=== PATIENT | female | born 1990 | race Caucasian/White ===

== ENCOUNTER → 2019-05-08 | Outpatient (CLI) | payer OTHER ==
[2019-05-08 14:52] LABS: BASO % 0.6 % (0.0-1.0); EOS # 0.3 10^3/uL (0.0-0.5); EOS % 4.1 % (0.0-3.0); HEMATOCRIT 34.2 % (36.0-47.0); HEMOGLOBIN 12.2 g/dl (12.0-15.5); LYMPH # 1.5 10^3/uL (1.5-5.0); LYMPH % 22.6 % (24.0-44.0); MEAN CORPUSCULAR HEMOGLOBIN 31.8 pg (27.0-33.0); MEAN CORPUSCULAR HGB CONC 35.7 g/dl (32.0-36.5); MEAN CORPUSCULAR VOLUME 89.1 fl (80.0-96.0); MONO # 0.5 10^3/uL (0.0-0.8); MONO % 7.9 % (0.0-5.0); NEUTROPHILS # 4.2 10^3/uL (1.5-8.5); NEUTROPHILS % 64.6 % (36.0-66.0); PLATELET COUNT, AUTOMATED 255 10^3/uL (150-450); RED BLOOD COUNT 3.84 10^6/uL (4.00-5.40); WHITE BLOOD COUNT 6.6 10^3/uL (4.0-10.0)
[2019-05-08 16:09] LABS: CHLAMYDIA DNA AMPLIFICATION NEGATIVE (NEGATIVE); GC DNA AMPLIFICATION NEGATIVE (NEGATIVE)
[2019-05-09 09:30] LABS: HEPATITIS C VIRUS ABY INDEX 0.1 INDEX (<0.8); HIV 1&2 SCREEN CENTAUR NEGATIVE (NEGATIVE); RUBELLA IgG QUALITATIVE IMMUNE (IMMUNE)
== END ==
LOC: M SMT 10:13
PROVIDERS: ATTEND Obstetrics & Gynecology
DX: Z36.9 Encounter for antenatal screening, unspecified (principal); Z3A.00 Weeks of gestation of pregnancy not specified

== ENCOUNTER → 2019-07-16 | Outpatient (CLI) | payer OTHER ==
--- NOTE | 2019-07-16 17:01 | REP ---
Clinical: Anatomical evaluation. Comparison: None . Findings: Examination demonstrates a single live intrauterine in breech presentation. motion is identified by technologist. Placenta is noted fundal and grade I without evidence for placenta previa or abruption. Amniotic fluid volume is normal. Cervix measures 4.1 cm in length and appears closed. Nuchal cord cannot be excluded. Gestational age by LMP 20 weeks 1 day with EDINSON 12/02/2019 . Gestational age by current measurements 19 weeks 5 days with EDINSON 12/05/2019 . FHR equals 136 beats per minute. BPD 4.5 cm 19 weeks 4 days HC 16.9 cm 19 weeks 4 days AC 15.4 cm 20 weeks 4 days FL 3.0 cm 19 weeks 3 days HL 3.0 cm 19 weeks 5 days HC/AC ratio 1.10 Estimated weight 323 grams ( 42nd percentile). Anatomical assessment demonstrates normal structures including cranium, cavum, cerebellum/posterior fossa, facial features, lungs, four-chamber heart/ventricular outflow tracts, diaphragm, stomach, cord insertion/three-vessel cord, kidneys/bladder, spine, and extremities. Small left choroid plexus cyst noted. Echogenic focus within the left cardiac ventricle consistent with prominent chordae tendineae. Impression: 1. Single live intrauterine in breech presentation demonstrating appropriate interval growth. 2. Nuchal cord cannot be excluded. 3. Cord plexus cyst and cardiac findings may warrant reevaluation and follow-up. Electronically Signed by Maldonado Phan MD 07/16/2019 04:53 P
== END ==
LOC: M RAD 15:47
PROVIDERS: ATTEND Advanced Practice Midwife
DX: Z34.82 Encounter for supervision of other normal pregnancy, second trimester (principal); Z3A.19 19 weeks gestation of pregnancy

== ENCOUNTER → 2019-07-30 | Outpatient (CLI) | payer OTHER | LOC: M PLALAB 09:59 | PROVIDERS: ATTEND Advanced Practice Midwife | DX: O28.3 Abnormal ultrasonic finding on antenatal screening of mother (principal); Z3A.00 Weeks of gestation of pregnancy not specified ==

== ENCOUNTER → 2019-08-28 | Outpatient (CLI) | payer OTHER ==
[2019-08-28 13:35] LABS: HEMATOCRIT 36.7 % (36.0-47.0); HEMOGLOBIN 12.8 g/dl (12.0-15.5); MEAN CORPUSCULAR HEMOGLOBIN 32.1 pg (27.0-33.0); MEAN CORPUSCULAR HGB CONC 34.9 g/dl (32.0-36.5); PLATELET COUNT, AUTOMATED 319 10^3/uL (150-450); RED BLOOD COUNT 3.99 10^6/uL (4.00-5.40); WHITE BLOOD COUNT 10.2 10^3/uL (4.0-10.0)
== END ==
LOC: M PLALAB 09:10
PROVIDERS: ATTEND Advanced Practice Midwife
DX: Z36.89 Encounter for other specified antenatal screening (principal); Z3A.22 22 weeks gestation of pregnancy

== ENCOUNTER → 2019-11-03 | Outpatient (REF) | payer OTHER | LOC: M SFHCWAGY 17:12 | PROVIDERS: ATTEND Obstetrics & Gynecology | DX: Z36.85 Encounter for antenatal screening for Streptococcus B (principal) ==

== ENCOUNTER 2019-11-30 16:50 | Inpatient (IN) | payer OTHER ==
[~2019-11-30] VITALS: Ht 165.1 cm; Wt 83.7 kg
[2019-11-30] MEDS ORDERED: PRENTAB9 PO (17:13)
[2019-11-30 17:29] VITALS: BP 143/89
[2019-11-30 18:20] LABS: HEMATOCRIT 35.5 % (36.0-47.0); HEMOGLOBIN 12.6 g/dl (12.0-15.5); MEAN CORPUSCULAR HGB CONC 35.5 g/dl (32.0-36.5); MEAN CORPUSCULAR VOLUME 90.1 fl (80.0-96.0); PLATELET COUNT, AUTOMATED 211 10^3/uL (150-450); RED BLOOD COUNT 3.94 10^6/uL (4.00-5.40); WHITE BLOOD COUNT 10.6 10^3/uL (4.0-10.0)
--- NOTE | 2019-11-30 18:22 | HPE ---
DATE OF ADMISSION: 11/30/2019 A 29-year-old (G) 3, para (P) 2-0-0-2 female at 39 and 5/7 weeks gestation by last menstrual period (LMP), consistent with nine-week ultrasound, estimated date of confinement (EDC) of 12/02/2019, who presents for labor induction. She has occasional contractions. She denies vaginal bleeding. COURSE: The patient's care [facility]. She has had no complications. OBSTETRICAL HISTORY: Vaginal delivery times two. PAST MEDICAL HISTORY: None. ALLERGIES: CECLOR. SOCIAL HISTORY: The patient is . She denies cigarettes, alcohol or drug use. She lives at [place]. FAMILY HISTORY: Noncontributory. PHYSICAL EXAMINATION: Blood pressure 140/89, pulse 84. She is in no apparent distress. HEAD AND NECK: Normal. LUNGS: Clear. HEART: Regular rate and rhythm. ABDOMEN: Nontender, gravid. heart tones category 1. STERILE VAGINAL EXAMINATION: 2 cm, 60%, -2, posterior, soft, vertex. EXTREMITIES: Nontender. LABORATORY DATA: She is GBS negative. Blood type is O+. ASSESSMENT: A 29-year-old (G) 3, para (P) 2 female at 39 and 5/7 weeks gestation who presents for labor induction. PLAN: The patient is admitted on 11/30/2019. The risks of induction were discussed.
[2019-11-30] MEDS: miSOPROStol 50 MCG 1/2 TAB (S0191) SL SCH ×2 (18:34→22:45)
[2019-11-30 20:36] VITALS: BP 154/90
[2019-11-30 22:06] VITALS: BP 134/74
[2019-12-01] VITALS (28 sets, daily range): BP systolic 107–148; BP diastolic 53–95
[2019-12-01] MEDS: miSOPROStol 50 MCG 1/2 TAB (S0191) SL SCH (03:52)
[2019-12-01] MEDS ORDERED: OXYTOCIN DRIP 30 UNITS in IV 1 EA IV SCH ×2 (08:45→15:00)
[2019-12-01] MEDS: LR 1,000 ML IV SCH ×2 (09:13→11:17)
[2019-12-01] MEDS ORDERED: FENTANYL 2MCG/ML ROPIVACAINE 0.2% IN 0.9% NACL 100ML IVBAG As Ordered ONE (10:24)
[2019-12-01] MEDS ORDERED: diphenhydrAMINE 50MG/ML VIAL (J1200) IV PRN (12:00)
[2019-12-01] MEDS ORDERED: ePHEDrine SULFATE 25 MG/5 ML(5MG/ML) SYRINGE IV PRN (12:00)
[2019-12-01] MEDS ORDERED: EPIDURAL COMMENT XX SCH (12:00)
[2019-12-01] MEDS ORDERED: EPIDURAL/PCA KEYS XX PRN (12:00)
[2019-12-01] MEDS ORDERED: LACTATED RINGER'S 1000 ML IV PRN (12:00)
[2019-12-01] MEDS ORDERED: NALOXONE INJ 0.4 MG/1 ML VIAL (J2310) IV PRN (12:00)
[2019-12-01] MEDS ORDERED: REFRIGERATOR IV KEYS XX PRN (12:00)
[2019-12-01] MEDS ORDERED: FENTANYL/ROPIVACAINE/NACL BAG 100 ML EPIDURAL SCH (12:00)
[2019-12-01] MEDS ORDERED: ONDANSETRON 4MG/2ML VIAL (J2405) IV PRN (12:00)
--- NOTE | 2019-12-01 13:13 | IPNPDOC ---
Obstetrical Progress Note Date of Service Dec 01, 2019 Subjective Patient reports she is comfortable with her epidural. Objective Vital Signs Date Time Temp Pulse Resp B/P (MAP) Pulse Ox O2 Delivery O2 Flow Rate FiO2 12/01/19 12:34 98.8 66 18 109/56 (73) Assessment Heart Rate (FHR): 120 Variability: Moderate Accelerations: Positive Decelerations: None Heart Rate Tracing: Category I Tocometer Contractions: Yes Frequency: regular, every 2-2 min. Strength: palpated as moderate Sterile Vaginal Examination Dilation: 6 cm Effacement (%): 100% Station: 0 Postion/Presentation: Cephalic presentation Assessment and Plan Age: 29 : 3 Term: 2 Pre-term: 0 Abortions: 0 Livin EGA at Admission: 39.5 Weeks & Days 39.6 today Status: Reassuring Group B Streptococcus: Negative Anticipate: Vaginal Delivery Additional Comments Pitocin is at 2 mu/min. AROM to a moderate amount of clear fluid. ARIELLE HUGGINS CNM Dec 01, 2019 13:13
--- NOTE | 2019-12-01 14:14 | DNPDOC ---
[facility] Delivery Note Delivery Note DATE OF DELIVERY: 12/01/19 at 1334 PREDELIVERY DIAGNOSIS: 39-6/7 weeks' gestation and labor. POST DELIVERY DIAGNOSIS: Delivered. PROCEDURE: Spontaneous vaginal delivery. CLINICAL PHARMACY MANAGER: Arielle Meza CNM, OLIVA ANESTHESIA: epidural. ESTIMATED BLOOD LOSS: 350 mL. FINDINGS: 7pounds 2 ounces; 3230 grams, female infant, Score 8/9, nuchal cord times x1 loose. DELIVERY SUMMARY: Patient is a at 39.6 weeks who presented for an induct ion of labor-elective. She received an epidural for pain management. She progressed to fully dilated at 1332 and pushed to a living female in the CHAN position with restitution to ROT at 1334. There was a loose nuchal cord that was reduced on the perineum. The anterior shoulder delivered with ease and the corpus immediately followed. The baby was placed [id number] active and crying with stimulation. The cord was clamped x2 after pulsation ceased and cut by the FOB. The placenta delivered spontaneously and intact at 1340. Uterine hemostasis was achieved via rapid infusion of IV Pitocin and fundal massage. The vagina, cervix, and perineum were inspected and found to have a 1st degree perineal laceration that does not need repair due to location and hemostasis. They plan on naming their daughter Linda Verdin. She plans to breastfeed. Both mom and baby are in stable condition. All counts of instruments and laps are correct. ARIELLE MEZA CNM Dec 01, 2019 14:14
[2019-12-01] MEDS ORDERED: DIBUCAINE 1% OINTMENT 30GM TOP PRN (14:15)
[2019-12-01] MEDS ORDERED: METHYLERGONOVINE MALEATE 0.2 MG TAB PO PRN (14:15)
[2019-12-01] MEDS ORDERED: IBUPROFEN 600 MG TAB PO PRN (14:15)
[2019-12-01] MEDS ORDERED: ACETAMINOPHEN 500 MG TAB PO PRN (14:15)
[2019-12-01] MEDS ORDERED: ACETAMINOPHEN TAB 650MG DOSE (2X325MG) PO PRN (14:15)
[2019-12-01] MEDS ORDERED: ANUSOL HC CREAM 30GM TOP PRN (14:15)
[2019-12-01] MEDS ORDERED: DOCUSATE SODIUM 100 MG CAP PO PRN (14:15)
[2019-12-01] MEDS ORDERED: RHOGAM 300 MCG (1500 IU) INJ (J2790) IM SCH (15:00)
[2019-12-01] MEDS ORDERED: MEASLES,MUMPS,RUBELLA VACCINE INJ (MMR-II) (90707) SC SCH (15:00)
[2019-12-01] MEDS: IBUPROFEN 800 MG TAB PO PRN ×2 (15:27→17:43)
[2019-12-02] MEDS: IBUPROFEN 800 MG TAB PO PRN ×2 (06:01→14:18)
[2019-12-02 06:07] VITALS: BP 133/78
[2019-12-02 07:30] VITALS: BP 133/78
[2019-12-02] MEDS ORDERED: IBUP80TA PO (07:45)
[2019-12-02] MEDS ORDERED: ACET-683 PO (07:45)
[2019-12-02] MEDS ORDERED: PRENATAL VITAMINS CHEWABLE TABLET PO SCH (09:00)
== END 2019-12-02 14:40 | disposition home or self-care (01) | DRG 807 ==
LOC: M LDI 16:50 → M OBS 12-01 16:15
PROVIDERS: ADMIT Specialist; ATTEND Advanced Practice Midwife
PROC: 3E033VJ Introduction of Other Hormone into Peripheral Vein, Percutaneous Approach (ICD-10-PCS; 2019-11-30)
PROC: 10E0XZZ Delivery of Products of Conception, External Approach (ICD-10-PCS; principal; 2019-12-01)
PROC: 10907ZC Drainage of Amniotic Fluid, Therapeutic from Products of Conception, Via Natural or Artificial Opening (ICD-10-PCS; 2019-12-01)
DX: O69.81X0 Labor and delivery complicated by cord around neck, without compression, not applicable or unspecified (principal); Z37.0 Single live birth; Z3A.39 39 weeks gestation of pregnancy; O70.0 First degree perineal laceration during delivery

== ENCOUNTER → 2020-04-23 | Outpatient (REF) | payer OTHER ==
[~2020-04-23] MED LIST: ACET-683 PO; IBUP80TA PO; PRENTAB9 PO
== END ==
LOC: M SFHCWAGY 19:17
PROVIDERS: ATTEND Advanced Practice Midwife
DX: Z12.4 Encounter for screening for malignant neoplasm of cervix (principal)
CPT/HCPCS: 87624; G0123